=== PATIENT | male | born 1980 | race African-American/Black ===

== ENCOUNTER 2020-03-02 22:16 | Emergency (ER) | payer MEDICAID ==
[2020-03-02 22:30] VITALS: BP 148/85
--- NOTE | 2020-03-02 22:44 | ER Document Report ---
HPI - HPI Patient complains to provider of: Hand pain Time Seen by Provider: 03/02/20 22:33 Onset: Other - 2 days Quality of pain: Achy Context: Patient presents complaining of painful skin lesion to right hand for the past 2 days. Patient feels that hand is swollen. Patient denies any injury or fever. Associated Symptoms: denies: Fever Exacerbated by: Movement Relieved by: Denies Similar symptoms previously: No Recently seen / treated by doctor: No - ROS ROS below otherwise negative: Yes Systems Reviewed and Negative: Yes All other systems reviewed and negative - CONSTITUTIONAL Constitutional: DENIES: Fever - NEURO Neurology: DENIES: Weakness - DERM Skin Color: Normal Notes: Skin lesion to palmar surface of hand Past Medical History - General Information source: Patient - Social History Smoking Status: Never Smoker Occupation: [employer] Family History: Reviewed & Not Pertinent - Past Medical History Cardiac Medical History: Reports: Hx Hypertension - MEDICATED Denies: Hx Heart Attack Pulmonary Medical History: Reports: Hx Asthma - USED INHALER YESTERDAY,MILD WHEEZING-WORKING OUTSIDE Neurological Medical History: Denies: Hx Cerebrovascular Accident, Hx Seizures GI Medical History: Denies: Hx Hepatitis, Hx Hiatal Hernia, Hx Ulcer Infectious Medical History: Denies: Hx Hepatitis Past Surgical History: Reports: Hx Orthopedic Surgery - Immunizations Hx Diphtheria, Pertussis, Tetanus Vaccination: No Vertical Provider Document - CONSTITUTIONAL Agree With Documented VS: Yes Exam Limitations: No Limitations General Appearance: WD/WN, No Apparent Distress - INFECTION CONTROL TRAVEL OUTSIDE OF THE [place] IN LAST 30 DAYS: No - HEENT HEENT: Atraumatic, Normocephalic - NECK Neck: Normal Inspection, Supple - RESPIRATORY Respiratory: Breath Sounds Normal, No Respiratory Distress - CARDIOVASCULAR Cardiovascular: Regular Rate, Regular Rhythm Pulses: Normal: Radial - MUSCULOSKELETAL/EXTREMETIES Musculoskeletal/Extremeties: MAEW, Tender - Tenderness to the ulnar palmar surface of right hand, patient with a thickened skin lesion that is tender with palpation - NEURO Level of Consciousness: Awake, Alert, Appropriate Motor/Sensory: No Motor Deficit - DERM Integumentary: Warm, Dry Notes: See above Course - Re-evaluation Re-evalutation: 03/02/20 22:44 Patient complains of tenderness and swelling to skin lesion to right hand. Do not suspect superimposed infection as patient does not have fever or erythema. Will cover with short course of antibiotics given patient's concern. Suspect likely wart, patient encouraged to use [id number] treatments and to follow-up with dermatology for further management. - Vital Signs Vital signs: Temp Pulse Resp BP Pulse Ox 98.4 F 76 17 148/85 H 95 03/02/20 22:29 03/02/20 22:29 03/02/20 22:29 03/02/20 22:29 03/02/20 22:29 - Laboratory Results Critical Laboratory Results Reviewed: No Critical Results - Radiology Results Critical Radiology Results Reviewed: No Critical Results Discharge - Discharge Clinical Impression: Wart Qualifiers: Viral wart type: unspecified viral wart Qualified Code(s): B07.9 - Viral wart, unspecified Condition: Stable Disposition: HOME, SELF-CARE Instructions: Warts ([facility]) Additional Instructions: Return immediately for any new or worsening symptoms Followup with your primary care provider, call tomorrow to make a followup appointment Follow up with a tibco developer for any persistent problems Prescriptions: Cephalexin Monohydrate [Keflex 500 mg Capsule] 500 mg PO Q6H 5 Days #20 capsule Referrals: TRACE NINO PA [NO LOCAL MD] - Follow up as needed QUYEN MCKEON DO [ACTIVE STAFF] - Follow up as needed
== END 2020-03-02 22:53 | disposition home or self-care (01) ==
LOC: ER 22:16
DX: B07.9 Viral wart, unspecified (principal); I10 Essential (primary) hypertension; J45.909 Unspecified asthma, uncomplicated
CPT/HCPCS: 99283